=== PATIENT | female | born 2000 | race Caucasian/White ===

== ENCOUNTER 2022-06-15 01:11 | Emergency (ER) | payer MEDICAID ==
[2022-06-15] MEDS ORDERED: Sodium Chloride 0.9% 1,000 ML IV ONE (01:15)
[2022-06-15] MEDS ORDERED: Ondansetron 4 MG/2 ML SDV IVPUSH ONE (01:37)
[2022-06-15] MEDS ORDERED: Ketorolac 30 MG/ML SDV IVPUSH ONE (01:37)
[2022-06-15] MEDS ORDERED: Morphine 4 MG/ML Syringe IVPUSH ONE ×2 (01:37→03:33)
[2022-06-15 02:05] LABS: BLOOD UREA NITROGEN,BUN 10 mg/dL (7.0-18.0); CARBON DIOXIDE,CO2 25.7 mmol/L (21.0-32.0); CHLORIDE,CL 105 mmol/L (98-107); GLUCOSE RANDOM 106 mg/dL (74-106); POTASSIUM,K 3.7 mmol/L (3.5-5.1); SODIUM,NA 140 mmol/L (136-145)
[2022-06-15 02:06] LABS: ESTIMATED GFR 127 mL/min (>60)
== END 2022-06-15 04:48 | disposition home or self-care (01) ==
LOC: MW.ED 01:11
DX: N80.00 Endometriosis of the uterus, unspecified (principal); E03.9 Hypothyroidism, unspecified; E66.9 Obesity, unspecified; Z79.899 Other long term (current) drug therapy; Z68.33 Body mass index [BMI] 33.0-33.9, adult
CPT/HCPCS: 36415; 76857; 80053; 81001; 84702; 85025; 96361; 96374; 96375; 96376; 99284; J1885; J2270; J2405; J7030

== ENCOUNTER 2022-06-18 01:06 | Emergency (ER) | payer MEDICAID ==
[2022-06-18] MEDS ORDERED: Morphine 4 MG/ML Syringe IVPUSH ONE (01:08)
[2022-06-18] MEDS ORDERED: Sodium Chloride 0.9% 1,000 ML IV ONE (01:08)
[2022-06-18] MEDS ORDERED: Ondansetron 4 MG/2 ML SDV IVPUSH ONE (01:08)
[2022-06-18 01:43] LABS: CARBON DIOXIDE,CO2 25.5 mmol/L (21.0-32.0); POTASSIUM,K 3.6 mmol/L (3.5-5.1)
== END 2022-06-18 02:36 | disposition home or self-care (01) ==
LOC: MW.ED 01:06
DX: R10.2 Pelvic and perineal pain (principal); E03.9 Hypothyroidism, unspecified; E66.9 Obesity, unspecified; Z68.33 Body mass index [BMI] 33.0-33.9, adult; Z79.899 Other long term (current) drug therapy
CPT/HCPCS: 36415; 76857; 80053; 84703; 85025; 96361; 96374; 96375; 99284; J2270; J2405; J7030

== ENCOUNTER 2022-08-08 09:31 | Emergency (ER) | payer MEDICAID ==
[2022-08-08] MEDS ORDERED: Ondansetron 4 MG Tab.DIS PO ONE (10:04)
[2022-08-08] MEDS ORDERED: Ibuprofen 600 MG Tab PO ONE (11:04)
== END 2022-08-08 11:56 | disposition home or self-care (01) ==
LOC: MW.ED 09:31
DX: N39.0 Urinary tract infection, site not specified (principal); E66.9 Obesity, unspecified; Z68.33 Body mass index [BMI] 33.0-33.9, adult; Z88.0 Allergy status to penicillin; Z86.16 Personal history of COVID-19
CPT/HCPCS: 71046; 81001; 81025; 99284; A9270; 99283